=== PATIENT | female | born 1985 | race Caucasian/White ===

== ENCOUNTER 2017-06-16 09:37 | Emergency (ER) | payer OTHER ==
[2017-06-16] MEDS: BUPIVACAINE 0.25% (MPF) 10 ML 10 ML VIAL INJ (12:20)
[2017-06-16] MEDS: CYCLOBENZAPRINE 10 MG TAB PO (12:27)
[2017-06-16] MEDS: BUPIVACAINE 0.25% (MPF) 30 ML INJ INJ (12:51)
== END 2017-06-16 14:00 | disposition home or self-care (01) ==
LOC: FTE 09:37
DX: M62.830 Muscle spasm of back (principal)
CPT/HCPCS: 20552; 99283-25

== ENCOUNTER 2017-09-01 08:25 | Emergency (ER) | payer OTHER ==
[2017-09-01 10:00] LABS: ALANINE AMINOTRANSFERASE 105 IU/L (13-69); ALBUMIN 4.5 g/dl (3.3-4.9); ALBUMIN/GLOBULIN RATIO 1.07; ALKALINE PHOSPHATASE 74 IU/L (42-121); ANION GAP 16 (8-16); ASPARTATE AMINO TRANSFERASE 97 IU/L (15-46); BILIRUBIN,INDIRECT 0.2 mg/dl (0-1.1); BILIRUBIN,TOTAL 0.2 mg/dl (0.2-1.3); BLOOD UREA NITROGEN 7 mg/dl (7-20); CARBON DIOXIDE 28 mmol/L (21-31); CHLORIDE 105 mmol/L (97-110); CREATININE 0.55 mg/dl (0.44-1.00); GLUCOSE 87 mg/dl (70-220); SODIUM 145 mmol/L (135-144); TOTAL PROTEIN 8.7 g/dl (6.1-8.1)
[2017-09-01 10:05] LABS: ADD MAN DIFF? NO
[2017-09-01 10:11] LABS: WHITE BLOOD COUNT 3.4 10^3/ul (4.8-10.8)
[2017-09-01 10:11] LABS: BASOPHILS % 0.3 % (0.0-2.0); EOSINOPHILS % 0.9 % (0.0-7.0); HEMATOCRIT 31.6 % (37.0-47.0); HEMOGLOBIN 9.5 g/dl (12.0-16.0); LYMPHOCYTES # 0.8 10^3/ul (0.8-2.9); MEAN CORPUSCULAR HEMOGLOBIN 20.7 pg (29.0-33.0); MEAN CORPUSCULAR HGB CONC 30.1 g/dl (32.0-37.0); MEAN CORPUSCULAR VOLUME 68.8 fl (82.0-101.0); MEAN PLATELET VOLUME 8.5 fl (7.4-10.4); MONOCYTE # 0.4 10^3/ul (0.3-0.9); MONOCYTES % 11.9 % (0.0-11.0); NEUTROPHIL # 2.2 10^3/ul (1.6-7.5); NEUTROPHILS % 63.6 % (39.0-77.0); PLATELET COUNT 393 10^3/UL (140-415); RED BLOOD COUNT 4.59 10^6/ul (4.20-5.40); RED CELL DISTRIBUTION WIDTH 16.4 % (11.5-14.5)
[2017-09-01 10:21] LABS: ADD UMIC YES; UR ASCORBIC ACID NEGATIVE (NEGATIVE); UR BILIRUBIN (Dip) NEGATIVE (NEGATIVE); UR BLOOD (Dip) NEGATIVE (NEGATIVE); UR CLARITY SLIGHTLY CLOUDY (CLEAR); UR COLOR YELLOW (YELLOW); UR GLUCOSE (Dip) NEGATIVE (NEGATIVE); UR KETONES (Dip) NEGATIVE (NEGATIVE); UR LEUKOCYTE ESTERASE (Dip) 2+ Leu/ul (NEGATIVE); UR MUCUS FEW /HPF (NONE SEEN); UR NITRITE (Dip) NEGATIVE (NEGATIVE); UR RBC 1 /HPF (0-5); UR SPECIFIC GRAVITY (Dip) 1.017 (1.003-1.030); UR SQUAMOUS EPITHELIAL CELL MODERATE /HPF (FEW); UR TOTAL PROTEIN (Dip) NEGATIVE (NEGATIVE); UR UROBILINOGEN (Dip) NEGATIVE (NEGATIVE); UR WBC 1 /HPF (0-5)
== END 2017-09-01 11:05 | disposition home or self-care (01) ==
LOC: FTE 08:25
DX: D50.9 Iron deficiency anemia, unspecified (principal)
CPT/HCPCS: 36415; 70450; 72125; 80053; 81001; 81025; 85025; 93005; 99285-25

== ENCOUNTER 2017-09-11 22:34 | Emergency (ER) | payer OTHER ==
[2017-09-11] MEDS: LORAZEPAM 2 MG INJ IV (23:49)
[2017-09-11] MEDS: KETOROLAC 30 MG INJ IV (23:58)
[2017-09-12 00:28] LABS: ADD MAN DIFF? NO
[2017-09-12 00:32] LABS: BASOPHILS % 0.2 % (0.0-2.0); EOSINOPHILS # 0.1 10^3/ul (0.0-0.5); EOSINOPHILS % 1.1 % (0.0-7.0); HEMATOCRIT 32.7 % (37.0-47.0); HEMOGLOBIN 9.8 g/dl (12.0-16.0); LYMPHOCYTES # 1.1 10^3/ul (0.8-2.9); LYMPHOCYTES % 20.4 % (15.0-51.0); MEAN CORPUSCULAR HEMOGLOBIN 21.7 pg (29.0-33.0); MEAN CORPUSCULAR VOLUME 72.5 fl (82.0-101.0); MONOCYTE # 0.6 10^3/ul (0.3-0.9); MONOCYTES % 10.2 % (0.0-11.0); NEUTROPHIL # 3.8 10^3/ul (1.6-7.5); NEUTROPHILS % 67.9 % (39.0-77.0); PLATELET COUNT 338 10^3/UL (140-415); RED BLOOD COUNT 4.51 10^6/ul (4.20-5.40); RED CELL DISTRIBUTION WIDTH 21.2 % (11.5-14.5)
[2017-09-12 00:32] LABS: WHITE BLOOD COUNT 5.6 10^3/ul (4.8-10.8)
[2017-09-12 00:39] LABS: ADD UMIC YES; UR ASCORBIC ACID NEGATIVE (NEGATIVE); UR BACTERIA FEW /HPF (NONE SEEN); UR BILIRUBIN (Dip) NEGATIVE (NEGATIVE); UR BLOOD (Dip) 1+ mg/dL (NEGATIVE); UR BUDDING YEAST FEW /HPF (NONE SEEN); UR CLARITY SLIGHTLY CLOUDY (CLEAR); UR COLOR YELLOW (YELLOW); UR GLUCOSE (Dip) NEGATIVE (NEGATIVE); UR KETONES (Dip) NEGATIVE (NEGATIVE); UR LEUKOCYTE ESTERASE (Dip) 3+ Leu/ul (NEGATIVE); UR NITRITE (Dip) NEGATIVE (NEGATIVE); UR RBC 9 /HPF (0-5); UR SPECIFIC GRAVITY (Dip) 1.011 (1.003-1.030); UR SQUAMOUS EPITHELIAL CELL FEW /HPF (FEW); UR TOTAL PROTEIN (Dip) NEGATIVE (NEGATIVE); UR UROBILINOGEN (Dip) NEGATIVE (NEGATIVE); UR WBC 25 /HPF (0-5)
[2017-09-12 01:00] LABS: ALANINE AMINOTRANSFERASE 147 IU/L (13-69); ALBUMIN 4.5 g/dl (3.3-4.9); ALKALINE PHOSPHATASE 70 IU/L (42-121); ANION GAP 20 (8-16); ASPARTATE AMINO TRANSFERASE 113 IU/L (15-46); BILIRUBIN,INDIRECT 0.2 mg/dl (0-1.1); BILIRUBIN,TOTAL 0.2 mg/dl (0.2-1.3); BLOOD UREA NITROGEN 12 mg/dl (7-20); CALCIUM 9.4 mg/dl (8.4-10.2); CARBON DIOXIDE 24 mmol/L (21-31); CHLORIDE 104 mmol/L (97-110); CREATININE 0.54 mg/dl (0.44-1.00); GLUCOSE 83 mg/dl (70-220); MAGNESIUM 1.7 mg/dl (1.7-2.5); SODIUM 144 mmol/L (135-144)
[2017-09-12] MEDS: CEPHALEXIN 500 MG CAP PO (01:23)
== END 2017-09-12 02:01 | disposition home or self-care (01) ==
LOC: FTE 09-12 02:01
DX: N39.0 Urinary tract infection, site not specified (principal); R51 Headache; R53.1 Weakness
CPT/HCPCS: 71045; 80053; 81001; 81025; 83735; 85025; 93005; 96374; 96375; 99285-25

== ENCOUNTER 2017-09-23 19:20 | Emergency (ER) | payer OTHER ==
[2017-09-23] MEDS: KETOROLAC 30 MG INJ IM (23:54)
[2017-09-23] MEDS: LORAZEPAM 1 MG TAB PO (23:54)
[2017-09-24 00:06] LABS: ADD MAN DIFF? NO
[2017-09-24 00:08] LABS: WHITE BLOOD COUNT 3.9 10^3/ul (4.8-10.8)
[2017-09-24 00:08] LABS: ABNORMAL IP MESSAGE 1; BASOPHILS % 0.3 % (0.0-2.0); HEMATOCRIT 36.9 % (37.0-47.0); HEMOGLOBIN 11.4 g/dl (12.0-16.0); LYMPHOCYTES # 1.1 10^3/ul (0.8-2.9); LYMPHOCYTES % 29.1 % (15.0-51.0); MEAN CORPUSCULAR HEMOGLOBIN 23.6 pg (29.0-33.0); MEAN CORPUSCULAR HGB CONC 30.9 g/dl (32.0-37.0); MEAN CORPUSCULAR VOLUME 76.2 fl (82.0-101.0); MEAN PLATELET VOLUME 8.4 fl (7.4-10.4); MONOCYTE # 0.4 10^3/ul (0.3-0.9); NEUTROPHIL # 2.3 10^3/ul (1.6-7.5); NEUTROPHILS % 58.3 % (39.0-77.0); PLATELET COUNT 314 10^3/UL (140-415); RED BLOOD COUNT 4.84 10^6/ul (4.20-5.40); RED CELL DISTRIBUTION WIDTH 23.3 % (11.5-14.5)
[2017-09-24 00:11] LABS: POSITIVE DIFF @See below
[2017-09-24 00:42] LABS: ANION GAP 14 (8-16); BLOOD UREA NITROGEN 8 mg/dl (7-20); CALCIUM 9.5 mg/dl (8.4-10.2); CARBON DIOXIDE 30 mmol/L (21-31); CHLORIDE 104 mmol/L (97-110); CREATININE 0.55 mg/dl (0.44-1.00); GLUCOSE 91 mg/dl (70-220); SODIUM 144 mmol/L (135-144)
[2017-09-24 00:53] LABS: TROPONIN-I < 0.012 ng/ml (0.00-0.12)
== END 2017-09-24 01:17 | disposition home or self-care (01) ==
LOC: FTE 09-24 01:17
DX: R07.9 Chest pain, unspecified (principal); R03.0 Elevated blood-pressure reading, without diagnosis of hypertension; R51 Headache; M54.2 Cervicalgia; M54.9 Dorsalgia, unspecified; R53.1 Weakness; F41.9 Anxiety disorder, unspecified
CPT/HCPCS: 36415; 80048; 81025; 84484; 85025; 93005; 96372; 99284-25

== ENCOUNTER 2017-10-07 | Inpatient (IN) | payer OTHER ==
[2017-10-07] MEDS ORDERED: morphine 2 MG INJ IV (01:30)
[2017-10-07] MEDS: ACETAMINOPHEN 325 MG TAB PO ×3 (01:46→20:07)
[2017-10-07] MEDS: ZOLPIDEM 5 MG TAB PO (01:47)
[2017-10-07] MEDS ORDERED: NACL 0.9% 3 ML SYG IV (06:30)
[2017-10-07] MEDS ORDERED: ALBUTEROL/IPRATROPIUM (NEB) 3 ML AMP HHN (06:30)
[2017-10-07] MEDS ORDERED: PHENAZOPYRIDINE 200 MG TAB PO (06:30)
[2017-10-07] MEDS: CYCLOBENZAPRINE 10 MG TAB PO ×3 (09:05→20:07)
[2017-10-07] MEDS: FERROUS SULFATE (EC) 325 MG TAB PO ×2 (09:05→20:06)
[2017-10-07] MEDS: DOCUSATE SODIUM 100 MG CAP PO ×2 (09:05→20:06)
[2017-10-07] MEDS: ONDANSETRON 4 MG INJ IV (10:42)
[2017-10-07 12:07] LABS: ADD MAN DIFF? NO
[2017-10-07 12:12] LABS: ABNORMAL IP MESSAGE 1; BASOPHILS % 0.2 % (0.0-2.0); EOSINOPHILS % 0.2 % (0.0-7.0); HEMATOCRIT 35.3 % (37.0-47.0); LYMPHOCYTES # 0.7 10^3/ul (0.8-2.9); LYMPHOCYTES % 13.3 % (15.0-51.0); MEAN CORPUSCULAR HEMOGLOBIN 24.2 pg (29.0-33.0); MEAN CORPUSCULAR HGB CONC 31.2 g/dl (32.0-37.0); MEAN CORPUSCULAR VOLUME 77.6 fl (82.0-101.0); MEAN PLATELET VOLUME 8.9 fl (7.4-10.4); MONOCYTE # 0.4 10^3/ul (0.3-0.9); MONOCYTES % 7.3 % (0.0-11.0); NEUTROPHIL # 3.9 10^3/ul (1.6-7.5); NEUTROPHILS % 78.8 % (39.0-77.0); PLATELET COUNT 233 10^3/UL (140-415); RED BLOOD COUNT 4.55 10^6/ul (4.20-5.40); RED CELL DISTRIBUTION WIDTH 23.1 % (11.5-14.5)
[2017-10-07 12:25] LABS: POSITIVE DIFF @See below
[2017-10-07 12:37] LABS: ALBUMIN 4.5 g/dl (3.3-4.9); BILIRUBIN,INDIRECT 0.5 mg/dl (0-1.1); BILIRUBIN,TOTAL 0.5 mg/dl (0.2-1.3); BLOOD UREA NITROGEN 11 mg/dl (7-20); CARBON DIOXIDE 23 mmol/L (21-31); CREATININE 0.57 mg/dl (0.44-1.00); TOTAL PROTEIN 9.5 g/dl (6.1-8.1)
[2017-10-07 12:58] LABS: ALANINE AMINOTRANSFERASE 119 IU/L (13-69); ALKALINE PHOSPHATASE 79 IU/L (42-121); ANION GAP 20 (8-16); ASPARTATE AMINO TRANSFERASE 97 IU/L (15-46); CALCIUM 9.1 mg/dl (8.4-10.2); CHLORIDE 103 mmol/L (97-110); GLUCOSE 92 mg/dl (70-220); SODIUM 142 mmol/L (135-144)
[2017-10-07] MEDS: IBUPROFEN 600 MG TAB PO ×2 (13:21→22:00)
[2017-10-07 13:53] LABS: THYROID STIMULATING HORMONE 0.452 MIU/L (0.465-4.680)
[2017-10-07] MEDS: D5W-0.45 NACL + KCL 20 MEQ 1,000 ML IV (15:05)
[2017-10-07 21:13] LABS: RHEUMATOID FACTOR NEGATIVE (NEGATIVE)
[2017-10-08] MEDS: D5W-0.45 NACL + KCL 20 MEQ 1,000 ML IV ×3 (00:30→22:08)
[2017-10-08] MEDS: IBUPROFEN 600 MG TAB PO ×3 (05:40→22:02)
[2017-10-08 05:51] LABS: ABNORMAL IP MESSAGE 1; ADD MAN DIFF? NO; BASOPHILS % 0.3 % (0.0-2.0); EOSINOPHILS # 0.1 10^3/ul (0.0-0.5); EOSINOPHILS % 1.9 % (0.0-7.0); HEMATOCRIT 32.8 % (37.0-47.0); HEMOGLOBIN 10.3 g/dl (12.0-16.0); LYMPHOCYTES % 26.1 % (15.0-51.0); MEAN CORPUSCULAR HEMOGLOBIN 24.5 pg (29.0-33.0); MEAN CORPUSCULAR HGB CONC 31.4 g/dl (32.0-37.0); MEAN CORPUSCULAR VOLUME 77.9 fl (82.0-101.0); MEAN PLATELET VOLUME 9.1 fl (7.4-10.4); MONOCYTE # 0.5 10^3/ul (0.3-0.9); MONOCYTES % 13.1 % (0.0-11.0); NEUTROPHIL # 2.2 10^3/ul (1.6-7.5); NEUTROPHILS % 58.3 % (39.0-77.0); PLATELET COUNT 271 10^3/UL (140-415); RED BLOOD COUNT 4.21 10^6/ul (4.20-5.40); RED CELL DISTRIBUTION WIDTH 22.5 % (11.5-14.5)
[2017-10-08 05:51] LABS: WHITE BLOOD COUNT 3.8 10^3/ul (4.8-10.8)
[2017-10-08 06:09] LABS: POSITIVE DIFF @See below
[2017-10-08 06:22] LABS: IRON 62 ug/dl (35-150)
[2017-10-08 06:31] LABS: % IRON SATURATION 17 % SAT (22-52); TOTAL IRON BINDING CAPACITY 369 ug/dl (241-421)
[2017-10-08 06:34] LABS: ANION GAP 12 (8-16); BLOOD UREA NITROGEN 9 mg/dl (7-20); CALCIUM 9.2 mg/dl (8.4-10.2); CARBON DIOXIDE 28 mmol/L (21-31); CHLORIDE 108 mmol/L (97-110); CREATININE 0.54 mg/dl (0.44-1.00); GLUCOSE 87 mg/dl (70-220); MAGNESIUM 1.9 mg/dl (1.7-2.5); PHOSPHORUS 3.8 mg/dl (2.5-4.9); POTASSIUM 3.5 mmol/L (3.5-5.1); SODIUM 144 mmol/L (135-144)
[2017-10-08] MEDS: FERROUS SULFATE (EC) 325 MG TAB PO ×2 (09:11→22:02)
[2017-10-08] MEDS: DOCUSATE SODIUM 100 MG CAP PO ×2 (09:11→22:02)
[2017-10-08] MEDS: CYCLOBENZAPRINE 10 MG TAB PO ×3 (09:12→22:02)
[2017-10-08 14:54] LABS: CREATINE KINASE 194 IU/L (23-200)
[2017-10-08 15:07] LABS: CK INDEX 0.7; CK-MB 1.44 ng/ml (0.0-2.4)
[2017-10-08 15:16] LABS: TROPONIN-I < 0.012 ng/ml (0.00-0.12)
[2017-10-08] MEDS: ACETAMINOPHEN 325 MG TAB PO (18:29)
[2017-10-08] MEDS: POLYETHYLENE GLYCOL 17 GM PACKET PO (18:29)
[2017-10-08] MEDS: ONDANSETRON 4 MG INJ IV (22:03)
[2017-10-09] MEDS: IBUPROFEN 600 MG TAB PO ×3 (03:30→22:00)
[2017-10-09] MEDS: D5W-0.45 NACL + KCL 20 MEQ 1,000 ML IV ×2 (07:00→18:30)
[2017-10-09] MEDS: CYCLOBENZAPRINE 10 MG TAB PO ×3 (09:00→21:00)
[2017-10-09] MEDS: FERROUS SULFATE (EC) 325 MG TAB PO ×2 (09:00→21:00)
[2017-10-09] MEDS: DOCUSATE SODIUM 100 MG CAP PO ×2 (09:00→21:00)
[2017-10-09 11:36] LABS: C-REACTIVE PROTEIN < 0.5 mg/dl (0.0-0.9)
[2017-10-09 12:38] LABS: ERYTHROCYTE SEDIMENTATION RATE 58 mm/Hr (0-20)
[2017-10-09] MEDS: CITALOPRAM 20 MG TAB GTB (13:53)
[2017-10-09 14:06] LABS: ANA SCREEN NEGATIVE (NEGATIVE)
[2017-10-09] MEDS: clonAZEPAM 0.5 MG TAB PO ×2 (15:00→22:00)
[2017-10-10] MEDS ORDERED: MAGNESIUM HYDROXIDE 30ML CUP PO (00:30)
[2017-10-10] MEDS: MAGNESIUM HYDROXIDE 30ML CUP PO (00:31)
[2017-10-10] MEDS: IBUPROFEN 600 MG TAB PO ×2 (05:53→13:38)
[2017-10-10] MEDS: clonAZEPAM 0.5 MG TAB PO ×2 (05:53→13:34)
[2017-10-10] MEDS: DOCUSATE SODIUM 100 MG CAP PO (09:00)
[2017-10-10] MEDS: FERROUS SULFATE (EC) 325 MG TAB PO (09:46)
[2017-10-10] MEDS: CYCLOBENZAPRINE 10 MG TAB PO ×2 (09:46→13:00)
[2017-10-10] MEDS: CITALOPRAM 20 MG TAB PO (09:46)
[2017-10-10] MEDS: ACETAMINOPHEN 325 MG TAB PO ×2 (10:27→16:20)
[2017-10-10] MEDS: D5W-0.45 NACL + KCL 20 MEQ 1,000 ML IV (15:31)
== END 2017-10-10 19:05 | disposition home or self-care (01) | DRG 880 ==
LOC: PP2
DX: F44.4 Conversion disorder with motor symptom or deficit (principal); D50.9 Iron deficiency anemia, unspecified; R53.1 Weakness; M06.9 Rheumatoid arthritis, unspecified; R51 Headache; M54.2 Cervicalgia; D63.8 Anemia in other chronic diseases classified elsewhere
CPT/HCPCS: 80048; 80053; 82550; 82553; 83540; 83735; 84100; 84443; 84484; 85025; 85651; 86038; 86140; 86235; 86430; 87081; 97110; 97163; 97530

== ENCOUNTER 2017-12-20 14:07 | Emergency (ER) | payer OTHER | END 2017-12-20 16:57 | disposition home or self-care (01) | LOC: E/R 14:07 | DX: K08.89 Other specified disorders of teeth and supporting structures (principal) | CPT/HCPCS: 70486; 81025; 99284-25 ==